=== PATIENT | female | born 1995 | race Caucasian/White ===

== ENCOUNTER 2018-10-31 11:50 | Inpatient (IN) | payer BC ==
[2018-10-31] MEDS ORDERED: Ringers Lactate 1,000 ML IV PRN (12:03)
[2018-10-31] MEDS ORDERED: NA CIT/CITRIC AC 30 ML ORAL UDC PO ONE (12:06)
[2018-10-31 12:56] LABS: RPR Titer ND
[2018-10-31] MEDS ORDERED: Ringers Lactate 1,000 ML IV SCH (13:00)
[2018-10-31] MEDS ORDERED: METOCLOPRAMIDE 10 MG/2mL INJ IV SCH (13:00)
[2018-10-31] MEDS ORDERED: CEFAZOLIN/SWI 2gm 2 GM/20 ML SYR IV SCH (13:00)
[2018-10-31 13:01] LABS: Urine Appearance CLOUDY; Urine Bilirubin NEGATIVE (NEG); Urine Blood NEGATIVE (NEG); Urine Color YELLOW; Urine Glucose NEGATIVE (NEG); Urine Protein NEGATIVE (NEG); Urine Specific Gravity 1.015 (1.005-1.030); Urine Urobilinogen 0.2 mg/dL (0.2-1.0)
[2018-10-31 13:05] LABS: Absolute Lymphocytes (CBC) 2.1 K/uL (0.7-4.9); Absolute Monocytes 0.8 K/uL (0.1-1.3); Absolute Neutrophil 8.5 K/uL (1.8-8.0); Basophils % 0.2 % (0-1.3); Eosinophils % 1.1 % (0-4.4); Hematocrit 37.7 % (36.0-45.0); MPV 10.3 fL (7.6-11.3); Monocytes % 6.9 % (3.3-12.3); RBC Red Blood Cell Count 4.54 M/uL (3.86-4.86); Urine Microscopic Reflex ORDER UMIC
[2018-10-31 13:20] LABS: Calcium Oxalate Crystals- Ur FEW (NONE SEEN); Urine Amorphous Sediment 2+ /HPF (NONE SEEN); Urine Bacteria 20-50 /HPF (<20); Urine Culture Reflex Order REFLEXED; Urine RBC <5 /HPF (NONE SEEN)
[2018-10-31 13:24] VITALS: BMI 32.1
[2018-10-31] MEDS ORDERED: CARBOPROST TROME 250 MCG/ML IM ONE (13:26)
[2018-10-31] MEDS ORDERED: METHYLERGONOVINE 0.2MG/ML AMP IM ONE (13:26)
[2018-10-31 13:27] LABS: BUN Blood Urea Nitrogen 6 mg/dL (7-18); Bicarbonate 22 mmol/L (21-32); Glucose Level 66 mg/dL (74-106); Potassium 4.3 mmol/L (3.5-5.1); Sodium Level 139 mmol/L (136-145)
[2018-10-31] MEDS ORDERED: BUPIVACAINE 0.75% (PF) 2 ML SP ONE (14:17)
[2018-10-31] MEDS ORDERED: MORPHINE SULFATE/PF 1 MG/ML (10 ML AMP) ONE (14:25)
[2018-10-31] MEDS ORDERED: OXYTOCIN 10 UNIT/ML ML IV ONE (14:42)
[2018-10-31] MEDS ORDERED: ONDANSETRON 4 MG (ODT) TAB PO PRN (15:51)
[2018-10-31] MEDS ORDERED: Oxycodone HCl/Acetaminophen 1 TAB TAB PO PRN ×2 (15:51)
[2018-10-31] MEDS ORDERED: BISACODYL 10 MG RECTAL SUPP RECT PRN (15:51)
[2018-10-31] MEDS ORDERED: ONDANSETRON 4 MG/2 ML VIAL IV PRN (15:51)
[2018-10-31] MEDS ORDERED: ACETAMINOPHEN 500 MG TAB PO PRN (15:51)
[2018-10-31] MEDS ORDERED: METHYLERGONOVINE 0.2 MG TAB PO PRN (15:51)
--- NOTE | 2018-10-31 15:51 | P.OP ---
Adjunct Latin Professor: Shirley Ha Preoperative diagnosis: Term , prior section, gestational hypertension Postoperative diagnosis: same Primary procedure: Repeat low transverse section Anesthesia: Spinal Estimated blood loss: 800cc Specimen: cord blood, placenta Operative Technique: The patient was taken to the operating room where her spinal anesthesia was placed. She was prepped and draped in the usual fashion for the procedure. After adequate spinal level was confirmed, the scalpel was utilized to make a transverse incision in the patient's lower abdominal wall. This incision was carried down to the level of the fascia, which was also transversely incised. Adhesions were noted between the uterus and the bladder flap. The adhesions were taken down with the . The bladder blade was placed in the lower pole of the incision to protect the bladder. The uterus was palpated and inspected. A thin lower uterine segment was noted. The vertex presentation was confirmed. The scalpel was then utilized to make a transverse or Villarreal incision in the lower uterine wall. Clear fluid was noted upon entering into the amniotic space. A term viable male infant was delivered up through the incision. He had spontaneous respirations. He was given bulb suctioning for clear fluid. His cord was clamped and cut and she was delivered off the field to nursery nurse. The baby boy was subsequently signed Apgars of 9 at one minute and 9 at five minutes. His weight was found to be 10 pounds and 4 ounces. The placenta was manually extracted from the endometrial cavity. The uterus was delivered up into the operative field. The endometrial cavity was swiped clean with a moist laparotomy pad. The uterine incision was then closed in a two- layered fashion with 0 Vicryl suture, the first layer interlocking and the second layer imbricating. The uterine incision was noted to be hemostatic upon closure. Bovie and suture ligation were use to obtain hemostasis on the few areas that were still bleeding. Bladder flap was reapproximated with a 3.0 vicryl. The uterus was rotated forward, normal tubes and ovaries were noted on both sides. The uterus was then returned to its normal position of the abdominal cavity. The sponge and instrument count was performed for the first time at this point and found to be correct. A final check of the uterine incision confirmed hemostasis. The rectus muscle were stabilized across the midline. The subcutaneous tissue was then exposed, and the fascia closed with two running lengths of 0 Vicryl suture, beginning in lateral margins and overlapping the midline. The subcutaneous tissue was then irrigated and inspected. No active bleeding was noted. It was closed with a interrupted 2.0 plain catgut suture. The skin was then approximated with 3.0 vicryl on a Frank needle. The patient was transferred to the recovery room in stable condition. The estimated blood loss through the procedure was 800 mL. The sponge and instrument counts were performed two more times during closure and found to be correct each time. Complications: None Drain(s): Urinary catheter Transferred to: Recovery Room Condition: Good
[2018-10-31] MEDS ORDERED: PROMETHAZINE 25 MG/ML VIAL IV PRN (16:00)
[2018-10-31] MEDS: Ringers Lactate 1,000 ML IV SCH (17:30)
[2018-10-31 23:32] LABS: RPR (Rapid Plasma Reagin) NON-REACT (NON-REACT)
--- NOTE | 2018-11-01 01:30 | HP ---
Date of Admission: 10/31/2018 History: Isabelle is a 23-year-old 2 para 1-0-0-1 at 38 weeks and 2 days gestation with a histo ry of prior section who presented to the office today with elevated blood pressure of 142/72 . The patient has been having persistently elevated blood pressures for the last few weeks; therefor e, decision was made to send the patient over to Labor and Delivery to have a repeat section performed. The patient's care has been monitored closely due to a history of preeclampsia in her last . During this care, she has also been followed for suspected macrosomi a and possible preeclampsia. Patient has been following with [facility] as well. Her last visit with [facility] w as in the end of August. The patient's last ultrasound was performed here on October 22, 2018 at which time infant was noted to be in cephalic presentation with a normal amniotic fluid index, anteri or placenta, and an estimated weight of 9+ pounds. Patient's glucose screen was normal. She h as been compliant with all visits. She had noninvasive testing performed and it re vealed was on low-risk male infant. Anatomy ultrasound was normal. She received the Tdap vaccine in the office on October 10 and a received flu vaccine on July 10. No other issues. Please see record for further details. Past Medical History: Significant for prior preeclampsia. Past Surgical History: Significant for section. Family History: Noncontributory. Patient was adopted. Social History: No tobacco, alcohol, or drug use. She is . Physical Examination: Vital signs: Blood pressure 142/72, pulse of 98, respirations 18, and temperature 98.0. General: Patient resting comfortably in bed. Head and Neck: Normocephalic, atraumatic. Neck: Supple. Respiratory: Symmetric nonlabored breathing. Abdomen: Gravid. Larger than expected for dates. Extremities: Bilateral lower extremities, +1 edema. Vaginal: Normal external female genitalia. Vagina is pink, moist, and normal rugae. Laboratory Findings: White blood cell count of 11.5, hemoglobin 12.4, hematocrit 37.7, and platelet count 211. Assessment: Isabelle is a 23-year-old 2 para 1-0-0-1 at 38 weeks and 2 days gestation with gest ational hypertension. Plan: Is to perform a repeat section. Ancef 2 g IV piggyback given to the patient. Routin e postoperative care will be performed. If elevated blood pressures persist, will place patient on l abetalol and begin magnesium. FREEDOM Voice ID: [id number]
[2018-11-01] MEDS: Ringers Lactate 1,000 ML IV SCH (01:35)
[2018-11-01 04:46] LABS: Absolute Lymphocytes (CBC) 2.7 K/uL (0.7-4.9); Absolute Monocytes 1.4 K/uL (0.1-1.3); Absolute Neutrophil 13.9 K/uL (1.8-8.0); Basophils % 0.2 % (0-1.3); Eosinophils % 0.6 % (0-4.4); Hematocrit 36.2 % (36.0-45.0); Lymphocytes % 14.8 % (15.3-44.8); MPV 10.2 fL (7.6-11.3); Monocytes % 7.8 % (3.3-12.3); RBC Red Blood Cell Count 4.33 M/uL (3.86-4.86)
[2018-11-01] MEDS: KETOROLAC 30 MG/ML INJ IV PRN ×2 (04:58→11:58)
[2018-11-01] MEDS: DOCUSATE NA/SENNA CONC 1 TAB PO PRN (11:58)
[2018-11-01] MEDS ORDERED: FAMOTIDINE 20 MG/2 ML VIAL IV ONE (12:06)
--- NOTE | 2018-11-01 17:04 | P.PN ---
Date of Service: 11/01/18 The patient is postop day 1 from a repeat section. She is doing well. She is tolerating diet. Her pain is well controlled. She is afebrile. She has no complaints today she is bonding well with the baby and is breast-feeding. Vital sign stable General: Resting in bed no distress Head and neck: Normocephalic atraumatic, supple Respiratory: Symmetric nonlabored breathing Abdomen: Soft, mildly distended, mildly tender. Incision clean dry and intact Bilateral lower extremities: No clubbing cyanosis or edema. Assessment and plan patient is postop day 1 after repeat section she is doing well. Pain is well controlled. Discontinue IV discontinue Tolentino catheter. Encourage patient to ambulate. Possible discharge home tomorrow. Selected Entries 11/04/16 11/01/18 11/01/18 08:00 07:40 11:58 Temperature 98.2 F 97.3 F Pulse Rate 76 88 Respiratory 18 18 Rate Blood Pressure 139/80 111/64 Pain Level 3 Laboratory Tests 10/31/18 11/01/18 12:38 04:25 WBC 11.5 H 18.1 H D Hgb 12.4 11.6 L Hct 37.7 36.2 Plt Count 211 177
[2018-11-02] MEDS: IBUPROFEN 200 MG TAB PO PRN ×2 (00:50→08:30)
[2018-11-02] MEDS: DOCUSATE NA/SENNA CONC 1 TAB PO PRN (08:30)
[2018-11-02 08:56] VITALS: BP 124/67; TEMP 97.3
[2018-11-02] MEDS ORDERED: Ringers Lactate 2,000 ML IV ONE (10:35)
[2018-11-04 04:40] LABS: HBsAG Nonreactive (Nonreactive)
== END 2018-11-02 09:45 | disposition home or self-care (01) | DRG 788 ==
LOC: 2ND-WC 11:50
PROVIDERS: ADMIT Student in an Organized Health Care Education/Training Program; ATTEND Student in an Organized Health Care Education/Training Program
PROC: 10D00Z1 Extraction of Products of Conception, Low, Open Approach (ICD-10-PCS; principal; 2018-10-31 14:00)
DX: O13.4 Gestational [pregnancy-induced] hypertension without significant proteinuria, complicating childbirth (principal); O34.211 Maternal care for low transverse scar from previous cesarean delivery; N85.8 Other specified noninflammatory disorders of uterus; Z3A.38 38 weeks gestation of pregnancy; Z37.0 Single live birth
CPT/HCPCS: 36415; 80048; 81003; 81015; 85025; 86592; 86900; 86901; 87086; 87088; 87340; 88307; J0690; J2210; J2405; J2550; J2590; J2765